=== PATIENT | female | born 1950 | race American Indian/Alaskan Native ===

== ENCOUNTER 2016-07-24 09:49 | Emergency (ER) | payer MEDICARE ==
--- NOTE | 2016-07-24 10:36 | Emergency Department Report ---
ED CPR HPI - General Chief Complaint: Cardiac Arrest/CPR Stated Complaint: CHF Time Seen by Provider: 07/24/16 10:28 Source: EMS Mode of arrival: Stretcher Limitations: No Limitations - History of Present Illness Initial Comments: The patient was found unresponsive by family members. There was an unknown down time. This was their first encounter with the patient this morning. EMS was summoned. They found the patient in asystole. They deployed standard ACLS protocols to include endotracheal intubation and repeated doses of epinephrine. After more than 30 minutes, they state upon their arrival, the patient has had no resumption of spontaneous circulation. They state that the last rhythm was PEA. The patient had multiple medical comorbidities. Apparently later one of the patient's relatives who is a nurse told the charge nurse that the patient did not desire CPR. However, at this point she was already pronounced on arrival. MD Complaint: found unresponsive -: unknown Place: home Bystander CPR Performed: No Initial Findings in the Field: unresponsive, systole ROSC in the Field: No Treatments Prior to Arrival: intubation, epinephrine mgs # - Related Data Home Medications Medication Instructions Recorded Confirmed Last Taken Paricalcitol [Zemplar] 1 mcg PO DAILY 08/18/13 07/19/16 3 Days Ago Allopurinol [Zyloprim] 100 mg PO QDAY 07/09/16 07/09/16 Unknown Calcitriol [Rocaltrol] 0.5 mcg PO QDAY 07/09/16 07/09/16 Unknown Previous Rx's Medication Instructions Recorded Last Taken Type Carvedilol [Coreg] 6.25 mg PO BID #60 tablet 07/18/16 Unknown Rx Hydrochlorothiazide [HCTZ] 25 mg PO QDAY #30 tablet 07/21/16 Unknown Rx Ipratropium/Albuterol Sulfate 1 ampul IH TIDRT #60 ampul.neb 07/21/16 Unknown Rx [Duoneb 0.5 mg-3 mg/3 ml Soln] Isosorb Dinit/Hydralazine [Bidil 1 each PO Q8HR #90 tablet 07/21/16 Unknown Rx 20/37.5MG] Pantoprazole [Protonix TAB] 40 mg PO QDAY #30 tablet 07/21/16 Unknown Rx Warfarin [Coumadin] 5 mg PO QDAY #20 tablet 07/21/16 Unknown Rx predniSONE [Deltasone] 20 mg PO QDAY #5 tab 07/21/16 Unknown Rx Allergies Allergy/AdvReac Type Severity Reaction Status Date / Time Iodine and Iodide Containing Allergy Unknown Swelling Verified 07/08/16 17:36 Produc lactose AdvReac Unknown Verified 07/10/16 12:36 Penicillins AdvReac Shortness Verified 07/08/16 02:03 of Breath ED Review of Systems ROS: Stated complaint: CHF Other details as noted in HPI Comment: Unobtainable due to pts medical conditions ED Past Medical Hx - Past Medical History Hx Hypertension: Yes Hx Congestive Heart Failure: Yes Hx Asthma: Yes Hx COPD: Yes - Social History Smoking Status: Never Smoker - Medications Home Medications: Home Medications Medication Instructions Recorded Confirmed Last Taken Type Paricalcitol [Zemplar] 1 mcg PO DAILY 08/18/13 07/19/16 3 Days Ago History Allopurinol [Zyloprim] 100 mg PO QDAY 07/09/16 07/09/16 Unknown History Calcitriol [Rocaltrol] 0.5 mcg PO QDAY 07/09/16 07/09/16 Unknown History Carvedilol [Coreg] 6.25 mg PO BID #60 tablet 07/18/16 Unknown Rx Hydrochlorothiazide [HCTZ] 25 mg PO QDAY #30 tablet 07/21/16 Unknown Rx Ipratropium/Albuterol Sulfate 1 ampul IH TIDRT #60 ampul.neb 07/21/16 Unknown Rx [Duoneb 0.5 mg-3 mg/3 ml Soln] Isosorb Dinit/Hydralazine [Bidil 1 each PO Q8HR #90 tablet 07/21/16 Unknown Rx 20/37.5MG] Pantoprazole [Protonix TAB] 40 mg PO QDAY #30 tablet 07/21/16 Unknown Rx Warfarin [Coumadin] 5 mg PO QDAY #20 tablet 07/21/16 Unknown Rx predniSONE [Deltasone] 20 mg PO QDAY #5 tab 07/21/16 Unknown Rx ED Physical Exam - General Limitations: Other General appearance: other (GCS 3) - Head Head exam: Present: atraumatic - Eye Pupils: Present: other (fixed dilated) - ENT ENT exam: Present: normal exam - Neck Neck exam: Present: normal inspection - Respiratory Respiratory exam: Present: normal lung sounds bilaterally (with Ambu bag assist) - Cardiovascular Cardiovascular Exam: Present: other (no cardiac activity) - GI/Abdominal GI/Abdominal exam: Present: distended - Extremities Exam Extremities exam: Present: normal inspection - Back Exam Back exam: Present: other (did not visualize) - Neurological Exam Neurological exam: Present: other ED Course - Reevaluation(s) Reevaluation #1: Patient had no return of spontaneous circulation for greater than half an hour after being found in asystole with unknown down time. Further resuscitative efforts would obviously be futile. The family was counseled. The patient was pronounced DOA. 07/24/16 10:32 Critical care attestation.: If time is entered above; I have spent that time in minutes in the direct care of this critically ill patient, excluding procedure time. ED Disposition Clinical Impression: Cardiac arrest Disposition: Is pt being admited?: No Does the pt Need Aspirin: No Condition: Stable Time of Disposition: 10:36
== END 2016-07-24 14:30 ==
LOC: ED 09:49
DX: I46.9 Cardiac arrest, cause unspecified (principal); I10 Essential (primary) hypertension; I50.9 Heart failure, unspecified; J44.9 Chronic obstructive pulmonary disease, unspecified; J45.909 Unspecified asthma, uncomplicated; Z88.0 Allergy status to penicillin; Z91.011 Allergy to milk products
CPT/HCPCS: 99285